=== PATIENT | male | born 1980 | race Two or more races ===

== ENCOUNTER 2022-05-14 13:38 | Emergency (ER) | payer MEDICAID ==
[~2022-05-14] VITALS: Ht 177.8 cm; Wt 81.8 kg
[2022-05-14 13:40] VITALS: BP 159/79
[2022-05-14] MEDS ORDERED: KETOROLAC TROMETHAMINE 30 MG/ML VIAL IM ONE (15:00)
[2022-05-14] MEDS ORDERED: CYCL-448 PO (16:53)
== END 2022-05-14 17:03 | disposition home or self-care (01) ==
LOC: EDBD 13:41 → EMS 13:41
DX: M54.50 Low back pain, unspecified (principal); F17.210 Nicotine dependence, cigarettes, uncomplicated; V49.50XA Passenger injured in collision with unspecified motor vehicles in traffic accident, initial encounter; Y93.89 Activity, other specified; Y92.89 Other specified places as the place of occurrence of the external cause; Y99.8 Other external cause status
CPT/HCPCS: 99284; 72100; 73562; 73630; 96372; J1885